=== PATIENT | male | born 1940 | race Caucasian/White ===

== ENCOUNTER 2017-11-02 12:48 | Outpatient (CLI) | payer MEDICARE, OTHER ==
--- NOTE | 2017-11-02 16:12 | CT ---
CT OF CHEST WITHOUT CONTRAST: Date: 11/02/17 COMPARISON: None. HISTORY: Smoker with a 62 year smoking history. Nicotine dependent. TECHNIQUE: Multiple contiguous axial images were obtained in a CT of the chest without contrast per low dose can [facility] screening protocol. Sagittal and coronal reformats were performed. FINDINGS: There is a peripheral area of ground-glass attenuation in the right upper lobe measuring approximatel y 3.1 cm in thickness. This is against the periphery and is associated with volume loss and may repre sent scarring. No other pulmonary nodules are seen. No pneumothorax or pleural effusions are seen. The heart is normal in size. Atherosclerotic calcifications are seen in the aorta and coronary arteri es. The visualized subdiaphragmatic structures are unremarkable. The chest wall soft tissues are unremark able. IMPRESSION: Lung-RADS Category 3 - probably benign findings. The ground-glass attenuation in the right upper lobe may represent scarring. A follow-up low dose cancer screening CT in 6 months is recommended to ensur e stability. POS: [facility]
== END 2017-11-02 12:49 | disposition home or self-care (01) ==
LOC: CT 12:48
DX: F17.210 Nicotine dependence, cigarettes, uncomplicated (principal)
CPT/HCPCS: G0297

== ENCOUNTER 2017-11-20 08:52 | Inpatient (IN) | payer MEDICARE, OTHER ==
[2017-11-20] MEDS ORDERED: Ondansetron HCl/PF 4 MG/2 ML Vial ONE ×2 (09:17→10:50)
[2017-11-20 09:31] LABS: #Basophils 0.2 thou/uL (0.0-0.2); #Lymphocytes 0.5 thou/uL (1.20-3.40); #Monocytes 0.4 thou/uL (0.11-0.59); #Neutrophils 12.7 thou/uL (1.40-6.50); %Basophils 1.5 % (0.0-1.0); %Eosinophils 0.1 % (0.0-10.0); %Lymphocytes 3.8 % (21.0-51.0); %Monocytes 2.8 % (0.0-10.0); %Neutrophils 91.7 % (42.0-75.0); Hemoglobin 17.5 g/dL (14.0-18.0); Mean Corpuscular HGB CONC 33.3 g/dL (32.0-36.0); Mean Corpuscular Hemoglobin 34.4 pg (27.0-31.0); Mean Platelet Volume 7.7 fL (7.4-10.4); Platelet Count 223 thou/uL (130-400); Red Blood Cell (RBC) Count 5.09 mill/uL (4.70-6.10); White Blood Cell (WBC) Count 13.8 thou/uL (4.8-10.8)
[2017-11-20 09:43] LABS: ALT (SGPT) 28 U/L (8-55); AST (SGOT) 24 U/L (5-34); Albumin 4.3 g/dL (3.4-4.8); Alkaline Phosphatase 58 U/L (40-150); Anion Gap 16 mmol/L (10-20); BUN (Urea Nitrogen) 11 mg/dL (8.4-25.7); Bilirubin, Total 0.7 mg/dL (0.2-1.2); Calc. Creatinine Clearance 0 mL/min (70-130); Calcium 9.9 mg/dL (7.8-10.44); Carbon Dioxide 27 mmol/L (23-31); Chloride 101 mmol/L (98-107); Estimated GFR-MDRD 62; Globulin 3.1 g/dL (2.4-3.5); Glucose 177 mg/dL (83-110); Potassium 4.4 mmol/L (3.5-5.1); Protein, Total 7.4 g/dL (5.8-8.1); Sodium 140 mmol/L (136-145)
[2017-11-20 09:48] LABS: CKMB 1.8 ng/mL (0-6.6); Troponin I 0.013 ng/mL (< 0.028)
--- NOTE | 2017-11-20 09:56 | RAD ---
CHEST ONE VIEW: HISTORY: Altered mental status. COMPARISON: None. FINDINGS: Atherosclerosis of the aorta. Normal cardiac silhouette. Pulmonary vessels and hilum are normal. C ostophrenic angles are clear. No consolidation or mass. No pneumothorax or osseous abnormalities. IMPRESSION: 1. No acute cardiopulmonary process. 2. Atherosclerosis. POS: [facility]
--- NOTE | 2017-11-20 10:05 | CT ---
EXAM: NONCONTRAST HEAD CT HISTORY: Altered mental status. Slurred speech and disorientation. COMPARISON: None. TECHNIQUE: Noncontrast head CT is performed from skull base to skull vertex. FINDINGS: No parenchymal hemorrhage. No extraaxial hematoma. No midline shift. Basilar cisterns are patent. Brain volume is age-appropriate. Cortical mir-white matter differentiation is preserved. Ventricl es and sulci are patent and symmetric. Confulent white matter hypodensity is due to chronic small vessel ischemic change. Malacic change in the right cerebellar hemisphere. Atherosclerosis of the cavernous carotid arteries and intracranial vertebral arteries. Calvarium is intact. Right maxillary sinus and scattered ethmoidal mucosal thickening. IMPRESSION: 1. No acute intracranial process. 2. Chronic small-vessel ischemic change in white matter. 3. Age-appropriate atrophy. 4. Malacic change in the right cerebellum. POS: [facility]
[2017-11-20] MEDS ORDERED: Aspirin 81 mg Enteric Coated Tablet ONE (10:27)
[2017-11-20] MEDS ORDERED: HYDROcodone/Acetaminophen 5/325 mg Tablet PO PRN (11:19)
[2017-11-20] MEDS ORDERED: Ondansetron HCl/PF 4 MG/2 ML Vial IVP PRN (11:19)
[2017-11-20] MEDS ORDERED: Pepto Bismol Chew TAB PO PRN (11:19)
[2017-11-20] MEDS ORDERED: Acetaminophen 325 MG TAB PO PRN (11:19)
[2017-11-20] MEDS ORDERED: Ondansetron ODT 4 MG TAB PO PRN (11:19)
[2017-11-20 12:44] LABS: Troponin I Less than 0.010 ng/mL (< 0.028)
[2017-11-20] MEDS ORDERED: hydrALAZINE 20 MG/ML VIAL SLOW IVP PRN (13:03)
[2017-11-20 13:41] LABS: Lactic Acid 3.8 mmol/L (0.5-2.2)
--- NOTE | 2017-11-20 14:36 | HP ---
DATE OF ADMISSION: 11/20/2017 PRIMARY CARE PHYSICIAN: Ke Freitas M.D. CHIEF COMPLAINT: Weakness. HISTORY OF PRESENT ILLNESS: This is a 77-year-old white male who is living with his . He is not ed to have a sudden onset of nausea and vomiting associated with diarrhea last night in the evening. This morning, he was noted to have some slurred speech and worsening weakness. This was noticed by his . This happened at around 6:30 this a.m. and patient arrived into the ER 3 hours after the f irst event. The patient had a CT of the head in the ER which was negative for any intracranial hemor rhage, but patient had persistent neurologic deficits. No TPA was given as it was beyond 3 hours win theodora. 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 This was more than more than 3 years ago when he had chemotherapy and radiation and used to see [facility]. The patient other puckett is in good health. Did not take any known medications. Denies having any chest pain, continues to have vomiting, but no diarrhea at this time. The patient has a history of aneurysm stent placed more than 2 or 3 years ago. Otherwise, no other k nown medical issues. PAST MEDICAL HISTORY: 1. History of lymphoma, underwent chemotherapy and radiation therapy more than 3 years ago. 2. History of hypertension. PAST SURGICAL HISTORY: History of aneurysmal stent placed more than 3 years ago. SOCIAL HISTORY: The patient is an ongoing smoker. No history of alcohol, no history of illicit drug use. FAMILY HISTORY: No significant family history of any coronary artery disease and family history has been reviewed and not relevant for the elderly age of the patient. REVIEW OF SYSTEMS: All 12 systems are reviewed with patient thoroughly and found to be negative at t his time. The following complete review of systems was negative, unless otherwise mentioned in the H PI or below: Constitutional: Weight loss or gain, sense of well-being, ability to conduct usual activities, exerc ise tolerance. Skin/Breast: Rash, itching, changes in hair growth or loss, nail changes, breast lumps, tenderness, swelling, nipple discharge. Eyes: Vision, double vision, tearing, blind spots, pain. ENT/Mouth: Headaches (location, time of onset, duration, precipitating factors), vertigo, lightheade dness, injury. Vision, double vision, tearing, blind spots, pain, nose bleeding, colds, obstruction, discharge, dental difficulties, gingival bleeding, dentures, neck stiffness, pain, tenderness, masses in thyroid or other areas Cardiovascular: Precordial pain, substernal distress, palpitations, syncope, dyspnea on exertion, or thopnea, nocturnal paroxysmal dyspnea, edema, cyanosis, hypertension, heart murmurs, varicosities, ph lebitis, claudication. Respiratory: Pain, shortness of breath, wheezing, stridor, cough, hemoptysis, fever or night sweats Gastrointestinal: Poor appetite, dysphagia, indigestion, abdominal pain, heartburn, eructation, naus ea, vomiting, hematemesis, jaundice, constipation, or diarrhea, abnormal stools (danna-colored, tarry, bloody, greasy, foul smelling), flatulence, hemorrhoids, recent changes in bowel habits. Genitourinary: Urgency, frequency, dysuria, nocturia, hematuria, polyuria, oliguria, unusual (or royal nge in) color of urine, stones, hesitancy, change in size of stream, dribbling, acute retention or in continence, libido, potency. Musculoskeletal: Pain, swelling, redness or heat of muscles or joints, limitation, of motion, muscul ar weakness, atrophy, cramps. Neurologic/Psychiatric: Convulsions, paralyses, tremor, incoordination, paraesthesias, difficulties with memory of speech, sensory or motor disturbances, or muscular coordination (ataxia, tremor), emot ional problems, anxiety, depression, previous psychiatric care, unusual perceptions, hallucinations. Allergy/Immunologic: Skin rash, anemia, bleeding tendency, polydipsia, polyuria, intolerance to heat or cold. HOME MEDICATIONS: Reviewed. Currently, the patient is not on any home medications. ALLERGIES: PENICILLIN allergy. PHYSICAL EXAMINATION: VITAL SIGNS: Blood pressure is 201/110, respiration is 18, pulse is 110, saturations 98% on room air . GENERAL: The patient is moderately built and moderately nourished, he is seen sitting in the bed, re tching with nausea; however, he is not in any distress with pain. HEENT: Atraumatic, normocephalic, PERRLA, extraocular movements are intact. Oral mucosa is dry. CARDIOVASCULAR SYSTEM: S1, S2 normal. No murmurs, rubs or gallops. LUNGS: Bilateral air entry was equal. No wheezing, no crackles. ABDOMEN: Soft, nontender, no guarding, no rebound tenderness. Bowel sounds normal. MUSCULOSKELETAL: No calf tenderness. No pedal edema. No joint tenderness, no joint swelling. SKIN: No cyanosis, no erythema, no rash, no pallor. NEUROLOGIC: Cranial nerve examination II-XII was done. Patient has signs of twelfth nerve deficit w ith slurred speech, but no evidence of any facial nerve deficits was noted. The patient did not have any sensory or motor abnormalities. Gait has not been assessed at this time. PSYCHIATRIC: No signs of suicidal ideation. No signs of rafael. No signs of agitation noted. LYMPHATICS: No other lymphadenopathy was noted. Patient had a history of enlarged lymph nodes in th e left underarm. LABORATORY DATA AND IMAGING DATA: Sodium 140, potassium 4.4, chloride 101, bicarbonate is 27, BUN is 11, creatinine 1.14, lactic acid 4.6. WBC 13.8, hemoglobin is 17.8, hematocrit is 52.6, neutrophils 91.7% with mild left shift is noted. Chest x-ray was done and was unremarkable. CT of the brain was done showing an evidence of encephalo malacia of the right cerebellum. Otherwise, no acute intracranial hemorrhage and showed some chronic small vessel changes. ASSESSMENT AND PLAN: 1. Acute intractable nausea and vomiting. 2. Acute encephalomalacia changes on the right cerebellum. 3. Moderate to severe dehydration. 4. Uncontrolled hypertension. 5. Leukocytosis. 6. Acute diarrhea. PLAN: 1. Plan is to admit the patient for inpatient at this time as the patient has multiple things going on. He has encephalomalacia patching on the right cerebellar area, which is associated with some slu rred speech and imbalance which the patient's family has noted at home. With history of lymphoma in the past, plan is to do MRI of the brain with contrast and look for any evidence of metastatic lesion s. We will consult Oncology based on the MRI results. 2. The patient has possible evidence of stroke with persistent neurologic deficits noted. At this t isaura, we will do a stroke evaluation. We will wait for MRI results and will consult Neurology. The p atient has been given aspirin, but TPA was not given because patient was out of the 3-hour window. W e will continue the statin. We will check for the lipid profiles. We will do a 2-D echo to look for any evidence of thromboembolism contributing to present stroke. 3. Patient has evidence of moderate to severe dehydration secondary to nausea and vomiting. The pat ient will be continued on normal saline at 100 mL hour. 4. The patient has acute diarrhea. We will check for any evidence of C. diff infection and send the stool for cultures and stool WBCs. 5. Ddeep venous thrombosis prophylaxis, he is on Lovenox. I spent 70 minutes on this patient.
[2017-11-20] MEDS: Sodium Chloride 0.9% 1,000 ML IV SCH (16:00)
[2017-11-20] MEDS ORDERED: Gadobenate Dimeglumine 529 MG/1 ML (20ML VIAL) ONE (16:57)
--- NOTE | 2017-11-20 17:35 | ULT ---
BILATERAL CAROTID DOPPLER 11/20/17 HISTORY: Dizziness. COMPARISON: None. FINDINGS: Real time mir scale and color evaluation as well as spectral analysis of the extracranial carotid an d vertebral arteries performed. Antegrade flow to both vertebral arteries. No elevated peak systolic velocities of the internal carotid arteries. Right ICA/CCA ratio is 0.56 and left ICA/CCA ratio is 0. 89. IMPRESSION: No hemodynamically significant stenosis. POS: [facility]
[2017-11-20 18:46] LABS: Cardiac Risk 3.8 (Less than 4.5)
--- NOTE | 2017-11-20 19:20 | MRI ---
EXAM: BRAIN MRI WITH AND WITHOUT CONTRAST 11/20/17 HISTORY: Dizziness. Headache and weakness. COMPARISON: None. TECHNIQUE: Brain MRI is performed with and without intravenous gadolinium administration. Multisequential, multi planar imaging is performed. FINDINGS: No hemorrhage on the axial gradient echo sequence. No parenchymal mass, mass effect or midline shift. Brain volume is age appropriate. Cortical mir-whi te matter differentiation is preserved. Ventricles and sulci are patent and symmetric. Central arterial flow voids are maintained. Absent restricted diffusion in the cerebrum. However, the re are multifocal areas of restricted diffusion involving the right cerebellar hemisphere. There is a ssociated T2 and FLAIR signal hyperintensity. Additional T2 and FLAIR white matter hyperintensity is noted in the supratentorial brain, compatible with chronic small vessel ischemic changes of the white matter. No pathologic enhancement of the brain parenchyma. The calvarium has a normal T1 marrow signal intens ity. Midline brain parenchymal structures are unremarkable. Mild mucosal thickening of the ethmoid air cells. There is an air fluid level in the right maxillary sinus. IMPRESSION: 1. Acute right cerebellar infarct. 2. Chronic small vessel ischemic change white matter. POS: [facility]
--- NOTE | 2017-11-20 19:52 | CON ---
DATE OF CONSULTATION: 11/20/2017 CONSULTING PHYSICIAN: Hospital Service IMPRESSION: Right cerebellar stroke with imbalance and transient nausea and vomiting. PLAN: 1. Aspirin. 2. Statin. 3. Review carotid ultrasound and echocardiogram. 4. Determine whether rehab versus outpatient therapy is necessary. Mr. Bro is a fairly healthy 77-year-old male with a past history of lymphoma. He is not taking any type of medication, [place] in the [place]. Developed acute nausea and vo miting, came into the emergency room for evaluation. His initial CT scan was done in the ER showed s ome chronic ischemic changes in the right cerebellum. A subsequent MRI of the brain shows evidence o f some acute ischemia in the right cerebellum. He was not complaining of any headache, nausea or vom iting at this point. He has not been able to walk since admission. He has been noted to be fairly h ypertensive with diastolics over 100. His laboratory studies were unremarkable other than a blood gl ucose of 177. He was on no medication. PAST MEDICAL HISTORY: As lymphoma. ALLERGIES: PENICILLIN. SOCIAL HISTORY: Positive for tobacco use. No alcohol. FAMILY HISTORY: Noncontributory. REVIEW OF SYSTEMS: Otherwise, unremarkable. PHYSICAL EXAMINATION: VITAL SIGNS: Blood pressure 179/103, pulse 83, respirations 16, temperature 98.8. HEENT: Pupils equal and reactive. Conjunctivae clear. Oropharynx clear. Cranium normocephalic and atraumatic. NECK: No lymphadenopathy. EXTREMITIES: No cyanosis. NEUROLOGIC: Alert and cooperative. His speech is fluent and clear. Cranial nerves were intact with out any obvious nystagmus. Motor exam showed good strength bilaterally. Cerebellar testing showed s ome mild dysmetria on the right. He was able to bring himself to a standing position, but was quite unsteady and wavered from side to side. Sensation was intact to light touch bilaterally. Laboratory studies were reviewed. SUMMARY: This is a 77-year-old man with apparent hypertension, questionable diabetes who presents wi th acute ischemic changes in the right cerebellum superimposed on some chronic damage. I agree with current medical management and workup.
[2017-11-20] MEDS: Atorvastatin Calcium 40 MG TAB PO SCH (21:48)
[2017-11-20] MEDS: Famotidine/PF 20 mg/2ml Vial SLOW IVP SCH (21:49)
[2017-11-20 22:30] LABS: Lactic Acid 2.1 mmol/L (0.5-2.2)
[2017-11-21] MEDS: Sodium Chloride 0.9% 1,000 ML IV SCH ×2 (05:28→16:54)
[2017-11-21 05:29] VITALS: BMI 29.0
[2017-11-21 05:46] LABS: #Eosinphils 0.1 thou/uL (0.0-0.7); #Lymphocytes 2.2 thou/uL (1.20-3.40); #Monocytes 1.5 thou/uL (0.11-0.59); #Neutrophils 13.5 thou/uL (1.40-6.50); %Basophils 0.2 % (0.0-1.0); %Eosinophils 0.3 % (0.0-10.0); %Lymphocytes 12.6 % (21.0-51.0); %Monocytes 8.8 % (0.0-10.0); %Neutrophils 78.1 % (42.0-75.0); Hemoglobin 15.6 g/dL (14.0-18.0); Mean Corpuscular HGB CONC 33.2 g/dL (32.0-36.0); Mean Corpuscular Hemoglobin 34.4 pg (27.0-31.0); Mean Platelet Volume 7.9 fL (7.4-10.4); Platelet Count 201 thou/uL (130-400); Red Blood Cell (RBC) Count 4.53 mill/uL (4.70-6.10); White Blood Cell (WBC) Count 17.3 thou/uL (4.8-10.8)
[2017-11-21 05:56] LABS: Anion Gap 12 mmol/L (10-20); BUN (Urea Nitrogen) 11 mg/dL (8.4-25.7); Calc. Creatinine Clearance 77 mL/min (70-130); Calcium 8.7 mg/dL (7.8-10.44); Carbon Dioxide 26 mmol/L (23-31); Chloride 103 mmol/L (98-107); Estimated GFR-MDRD 78; Glucose 105 mg/dL (83-110); Potassium 3.8 mmol/L (3.5-5.1); Sodium 137 mmol/L (136-145)
[2017-11-21] MEDS: Aspirin 81 mg Enteric Coated Tablet PO SCH (10:21)
[2017-11-21] MEDS: Famotidine/PF 20 mg/2ml Vial SLOW IVP SCH ×2 (10:21→21:10)
[2017-11-21] MEDS: Enoxaparin Sodium 40 MG/0.4 ML SYRINGE SC SCH (10:21)
[2017-11-21 11:27] LABS: Bilirubin Negative (Negative); Blood, Urine Negative (Negative); Clarity CLEAR (Clear); Glucose, Urine (Dipstick) Negative (Negative); Leukocyte Negative (Negative); Nitrite Negative (Negative); Protein, Urine (Dipstick) 30 mg/dL (Neg-Trace); Specific Gravity, Urine 1.017 (1.002-1.036); Urobilinogen 0.2 mg/dL (0.2-1.0); pH, Urine 7.5 (5.0-9.0)
[2017-11-21 11:31] LABS: Bacteria/HPF None Seen HPF (None Seen); Hyaline Casts/LPF 0-3 HYALINE CAST LPF (0-3 Hyaline); Squamous Epithelial None Seen HPF (0-3); WBC/HPF 0-3 HPF (0-3)
--- NOTE | 2017-11-21 11:33 | RAD ---
PA AND LATERAL VIEWS CHEST: HISTORY: Shortness of breath. Leukocytosis. Concern for aspiration pneumonia. COMPARISON: Exam from the previous day. FINDINGS: The heart size is normal. The aorta is tortuous. No confluent areas of consolidation, pneumothorace s, or pleural effusions are seen. No acute osseous abnormalities are noted. IMPRESSION: No acute process. POS: [facility]
--- NOTE | 2017-11-21 14:57 | PDOC.PN ---
- Subjective Encounter Start Date: 11/21/17 Encounter Start Time: 10:30 Patient is seen today, alert and oriented. No Other concernes noted. Called pts on phone, Explained about the New Stroke on MRI. Pt will be going to Rehab. - Objective Resuscitation Status: Resuscitation Status FULL:Full Resuscitation MAR Reviewed: Yes Vital Signs & Weight: Vital Signs (12 hours) Temp Pulse Pulse Pulse Resp BP BP 11/21/17 11:13 98 F 61 18 11/21/17 09:37 65 56 L 152/100 H 160/93 H 11/21/17 09:35 65 56 L 152/100 H 160/93 H 11/21/17 09:15 98.3 F 65 18 11/21/17 07:13 98.3 F 65 18 11/21/17 03:57 98.6 F 66 18 BP Pulse Ox 11/21/17 11:13 168/99 H 98 11/21/17 09:37 11/21/17 09:35 11/21/17 09:15 96 11/21/17 07:13 133/89 96 11/21/17 03:57 139/79 96 Weight Weight 179 lb 11.2 oz I&O: 11/20/17 11/21/17 11/22/17 06:59 06:59 06:59 Intake Total 1455 Output Total 1085 Balance 370 Result Diagrams: 11/21/17 05:04 11/21/17 05:04 Phys Exam - Physical Examination HEENT: PERRLA, moist MMs Neck: no nodes, no JVD Respiratory: no wheezing, no rales, clear to auscultation bilateral Cardiovascular: RRR, no significant murmur Gastrointestinal: soft, non-tender Musculoskeletal: no edema, pulses present Neurological: normal sensation, moves all 4 limbs (Has persistant Slurred Speech and Imbalance on walking.) Dx/Plan (1) Acute cerebrovascular accident (CVA) of cerebellum Code(s): I63.9 - CEREBRAL INFARCTION, UNSPECIFIED Status: Acute Plan: Patient is started on Aspirin/ Statin, Pt had normal US cROTIDS, nO SOURCE OF EMBOLI IS identified. Echo is pending at this time. Pt will go for Rehab inpatient due to his persistant weakness. (2) Leucocytosis Code(s): D72.829 - ELEVATED WHITE BLOOD CELL COUNT, UNSPECIFIED Status: Acute Qualifiers: Leukocytosis type: bandemia Qualified Code(s): D72.825 - Bandemia Plan: Patient has left Shift, No source of infection is noted, Will start Emperic Levofloxacin 500mg IV daily, will do Chest xray repeat for possible Aspiration, Will check UA for UTI. (3) Hypertension, uncontrolled Code(s): I10 - ESSENTIAL (PRIMARY) HYPERTENSION Status: Acute Plan: Pt is Restarted on his home MEds, GOal BP <130/80. (4) Hyperlipidemia Code(s): E78.5 - HYPERLIPIDEMIA, UNSPECIFIED Status: Acute Qualifiers: Hyperlipidemia type: other hyperlipidemia Qualified Code(s): E78.4 - Other hyperlipidemia Plan: COntinue pt on Statin will check lipid levels Goal LDL <100 - Plan plan discussed w/ family, PT/OT, social contact worker, speech therapy, DVT proph w/ lovenox * . - Discharge Day Encounter end time: 11:00 Review of Systems - Review of Systems Constitutional: weakness Eyes: negative: Pain, Vision Change, Conjunctivae Inflammation, Eyelid Inflammation, Redness, Other ENT: negative: Ear Pain, Ear Discharge, Nose Pain, Nose Discharge, Nose Congestion, Mouth Pain, Mouth Swelling, Throat Pain, Throat Swelling, Other Respiratory: negative: Cough, Dry, Shortness of Breath, Hemoptysis, SOB with Excertion, Pleuritic Pain, Sputum, Wheezing Cardiovascular: negative: chest pain, palpitations, orthopnea, paroxysmal nocturnal dyspnea, edema, light headedness, other Gastrointestinal: negative: Nausea, Vomiting, Abdominal Pain, Diarrhea, Constipation, Melena, Hematochezia, Other Genitourinary: negative: Dysuria, Frequency, Incontinence, Hematuria, Retention , Other Musculoskeletal: negative: Neck Pain, Shoulder Pain, Arm Pain, Back Pain, Hand Pain, Leg Pain, Foot Pain, Other Neurological: Weakness, Change in Speech - Medications/Allergies Allergies/Adverse Reactions: Allergies Allergy/AdvReac Type Severity Reaction Status Date / Time penicillin G Allergy Verified 11/21/17 01:59 Medications: Current Medications Acetaminophen (Tylenol) 650 mg PO Q4H PRN PRN Reason: Headache/Fever or Pain Last Admin: 11/21/17 02:09 Dose: 650 mg Hydrocodone Bitart/Acetaminophen (Racine 5/325) 1 tab PO Q4H PRN PRN Reason: Moderate Pain (4-6) Aspirin (Ecotrin) 81 mg PO DAILY [facility] Last Admin: 11/21/17 10:21 Dose: 81 mg Atorvastatin Calcium (Lipitor) 40 mg PO HS [facility] Last Admin: 11/20/17 21:48 Dose: 40 mg Bismuth Subsalicylate (Pepto Bismol) 2 tab PO Q1H PRN PRN Reason: Diarrhea/Loose Stools Enoxaparin Sodium (Lovenox) 40 mg SC 0900 [facility] Last Admin: 11/21/17 10:21 Dose: 40 mg Famotidine (Pepcid) 20 mg SLOW IVP Q12HR [facility] Last Admin: 11/21/17 10:21 Dose: 20 mg Hydralazine HCl (Apresoline) 10 mg SLOW IVP Q4H PRN PRN Reason: Sysolic > 180 Sodium Chloride (Normal Saline 0.9%) 1,000 mls @ 100 mls/hr IV .Q10H [facility] Last Admin: 11/21/17 05:28 Dose: 1,000 mls Levofloxacin 500 mg/ Device 100 mls @ 100 mls/hr IVPB 1100 [facility] Last Admin: 11/21/17 12:03 Dose: 100 mls Ondansetron HCl (Zofran Odt) 4 mg PO Q6H PRN PRN Reason: Nausea/Vomiting Ondansetron HCl (Zofran) 4 mg IVP Q6H PRN PRN Reason: Nausea/Vomiting Last Admin: 11/20/17 13:46 Dose: 4 mg Sodium Chloride (Flush - Normal Saline) 10 ml IVF Q12HR [facility] Last Admin: 11/21/17 10:22 Dose: Not Given Sodium Chloride (Flush - Normal Saline) 10 ml IVF PRN PRN PRN Reason: Saline Flush
[2017-11-21] MEDS: Atorvastatin Calcium 40 MG TAB PO SCH (21:10)
[2017-11-22] MEDS: Sodium Chloride 0.9% 1,000 ML IV SCH ×2 (03:01→14:40)
[2017-11-22 05:37] LABS: #Basophils 0.1 thou/uL (0.0-0.2); #Eosinphils 0.1 thou/uL (0.0-0.7); #Monocytes 1.2 thou/uL (0.11-0.59); #Neutrophils 8.1 thou/uL (1.40-6.50); %Basophils 0.6 % (0.0-1.0); %Lymphocytes 17.3 % (21.0-51.0); %Monocytes 10.1 % (0.0-10.0); %Neutrophils 71.1 % (42.0-75.0); Hemoglobin 15.4 g/dL (14.0-18.0); Mean Corpuscular Hemoglobin 32.8 pg (27.0-31.0); Mean Platelet Volume 7.8 fL (7.4-10.4); Platelet Count 192 thou/uL (130-400); RBC Distribution Width 11.7 % (11.5-14.5); Red Blood Cell (RBC) Count 4.69 mill/uL (4.70-6.10); White Blood Cell (WBC) Count 11.4 thou/uL (4.8-10.8)
[2017-11-22 05:47] LABS: Anion Gap 11 mmol/L (10-20); BUN (Urea Nitrogen) 10 mg/dL (8.4-25.7); Calc. Creatinine Clearance 92 mL/min (70-130); Calcium 8.5 mg/dL (7.8-10.44); Carbon Dioxide 27 mmol/L (23-31); Chloride 104 mmol/L (98-107); Estimated GFR-MDRD 90; Glucose 89 mg/dL (83-110); Potassium 3.5 mmol/L (3.5-5.1); Sodium 138 mmol/L (136-145)
[2017-11-22] MEDS: Enoxaparin Sodium 40 MG/0.4 ML SYRINGE SC SCH (08:36)
[2017-11-22] MEDS: Famotidine/PF 20 mg/2ml Vial SLOW IVP SCH (08:36)
[2017-11-22] MEDS: Aspirin 81 mg Enteric Coated Tablet PO SCH (08:36)
--- NOTE | 2017-11-22 15:42 | PDOC.PN ---
- Subjective Encounter Start Date: 11/22/17 Encounter Start Time: 14:00 Patient is seen today, alert and oriented. No other Concerns noted. Discussed with his on phone, they are in the process of moving to [place], Wants to take him to [place] and do Rehab over there, will discuss with Case manageemnt and pt/.OT. - Objective Resuscitation Status: Resuscitation Status FULL:Full Resuscitation MAR Reviewed: Yes Vital Signs & Weight: Vital Signs (12 hours) Temp Pulse Resp BP Pulse Ox 11/22/17 11:51 99.1 F 60 20 160/105 H 98 11/22/17 08:30 98.7 F 61 20 97 11/22/17 08:00 98.7 F 61 20 151/98 H 97 11/22/17 04:15 98.7 F 67 20 149/87 H 96 Weight Admit Weight 178 lb 9.191 oz Weight 188 lb 9.6 oz I&O: 11/21/17 11/22/17 11/23/17 06:59 06:59 06:59 Intake Total 1455 2964 Output Total 1085 1700 700 Balance 370 1264 -700 Result Diagrams: 11/22/17 05:05 11/22/17 05:05 Radiology Reviewed by me: Yes Phys Exam - Physical Examination HEENT: PERRLA, moist MMs Neck: no nodes, no JVD Respiratory: no wheezing, no rales Cardiovascular: RRR, no significant murmur Gastrointestinal: soft, non-tender Musculoskeletal: no edema, pulses present Dx/Plan (1) Acute cerebrovascular accident (CVA) of cerebellum Code(s): I63.9 - CEREBRAL INFARCTION, UNSPECIFIED Status: Acute (2) Leucocytosis Code(s): D72.829 - ELEVATED WHITE BLOOD CELL COUNT, UNSPECIFIED Status: Acute Qualifiers: Leukocytosis type: bandemia Qualified Code(s): D72.825 - Bandemia (3) Hypertension, uncontrolled Code(s): I10 - ESSENTIAL (PRIMARY) HYPERTENSION Status: Acute (4) Hyperlipidemia Code(s): E78.5 - HYPERLIPIDEMIA, UNSPECIFIED Status: Acute Qualifiers: Hyperlipidemia type: other hyperlipidemia Qualified Code(s): E78.4 - Other hyperlipidemia - Plan cont current plan of care, plan discussed w/ family, PT/OT, social worker clinical, speech therapy, DVT proph w/lovenox * . Plan: Will contoinue on Statin/ Aspirin for CVA Leucocytosis Improving, No evidence of infection, Chest xray normal. Will d/ c IV antibitoics. HTN well controlled. Family wants to take him to [place] and get his Rehab over there,.Will get PT/OT evalaute for safe discharge and outpaitent Rehab. DVT prophylaxis: Lovenox. - Discharge Day Encounter end time: 14:30 Review of Systems - Review of Systems Constitutional: weakness Eyes: negative: Pain, Vision Change, Conjunctivae Inflammation, Eyelid Inflammation, Redness, Other ENT: negative: Ear Pain, Ear Discharge, Nose Pain, Nose Discharge, Nose Congestion, Mouth Pain, Mouth Swelling, Throat Pain, Throat Swelling, Other Respiratory: negative: Cough, Dry, Shortness of Breath, Hemoptysis, SOB with Excertion, Pleuritic Pain, Sputum, Wheezing Cardiovascular: negative: chest pain, palpitations, orthopnea, paroxysmal nocturnal dyspnea, edema, light headedness, other Gastrointestinal: negative: Nausea, Vomiting, Abdominal Pain, Diarrhea, Constipation, Melena, Hematochezia, Other Genitourinary: negative: Dysuria, Frequency, Incontinence, Hematuria, Retention , Other Musculoskeletal: negative: Neck Pain, Shoulder Pain, Arm Pain, Back Pain, Hand Pain, Leg Pain, Foot Pain, Other Skin: negative: Rash, Lesions, Tae, Bruising, Other Neurological: Weakness - Medications/Allergies Allergies/Adverse Reactions: Allergies Allergy/AdvReac Type Severity Reaction Status Date / Time penicillin G Allergy Verified 11/21/17 01:59 Medications: Current Medications Acetaminophen (Tylenol) 650 mg PO Q4H PRN PRN Reason: Headache/Fever or Pain Last Admin: 11/21/17 02:09 Dose: 650 mg Hydrocodone Bitart/Acetaminophen ([place] 5/325) 1 tab PO Q4H PRN PRN Reason: Moderate Pain (4-6) Aspirin (Ecotrin) 81 mg PO DAILY [facility] Last Admin: 11/22/17 08:36 Dose: 81 mg Atorvastatin Calcium (Lipitor) 40 mg PO HS [facility] Last Admin: 11/21/17 21:10 Dose: 40 mg Bismuth Subsalicylate (Pepto Bismol) 2 tab PO Q1H PRN PRN Reason: Diarrhea/Loose Stools Enoxaparin Sodium (Lovenox) 40 mg SC 0900 [facility] Last Admin: 11/22/17 08:36 Dose: 40 mg Famotidine (Pepcid) 20 mg SLOW IVP Q12HR [facility] Last Admin: 11/22/17 08:36 Dose: 20 mg Hydralazine HCl (Apresoline) 10 mg SLOW IVP Q4H PRN PRN Reason: Sysolic > 180 Sodium Chloride (Normal Saline 0.9%) 1,000 mls @ 100 mls/hr IV .Q10H [facility] Last Admin: 11/22/17 14:40 Dose: 1,000 mls Levofloxacin 500 mg/ Device 100 mls @ 100 mls/hr IVPB 1100 [facility] Last Admin: 11/22/17 11:16 Dose: 100 mls Ondansetron HCl (Zofran Odt) 4 mg PO Q6H PRN PRN Reason: Nausea/Vomiting Ondansetron HCl (Zofran) 4 mg IVP Q6H PRN PRN Reason: Nausea/Vomiting Last Admin: 11/20/17 13:46 Dose: 4 mg Sodium Chloride (Flush - Normal Saline) 10 ml IVF Q12HR [facility] Last Admin: 11/22/17 08:37 Dose: Not Given Sodium Chloride (Flush - Normal Saline) 10 ml IVF PRN PRN PRN Reason: Saline Flush
[2017-11-22] MEDS: Famotidine 20 MG TAB PO SCH (21:36)
[2017-11-22] MEDS: Atorvastatin Calcium 40 MG TAB PO SCH (21:36)
[2017-11-23] MEDS: Enoxaparin Sodium 40 MG/0.4 ML SYRINGE SC SCH (08:45)
[2017-11-23] MEDS: Famotidine 20 MG TAB PO SCH ×2 (08:45→21:32)
[2017-11-23] MEDS: Aspirin 81 mg Enteric Coated Tablet PO SCH (08:45)
[2017-11-23] MEDS ORDERED: Lisinopril 10 MG TAB PO SCH (09:00)
[2017-11-23] MEDS: Hydrochlorothiazide 25 MG TAB PO SCH (09:33)
[2017-11-23] MEDS: Valsartan 80 MG TAB PO SCH (09:33)
--- NOTE | 2017-11-23 11:04 | PDOC.PN ---
- Subjective Encounter Start Date: 11/23/17 Encounter Start Time: 09:00 Patient is seen today, Alert and oriented, Discussed with who wants to take pt to [place] as they are moving there, Explained tomorrow CM will work on placement to [place]. Pt will need Inpatient Rehab per PT/OT. - Objective Resuscitation Status: Resuscitation Status FULL:Full Resuscitation MAR Reviewed: Yes Vital Signs & Weight: Vital Signs (12 hours) Temp Pulse Resp BP Pulse Ox 11/23/17 08:00 98.0 F 57 L 20 161/97 H 96 11/23/17 07:20 98.3 F 54 L 14 93 L 11/23/17 02:36 98.3 F 54 L 14 154/94 H 96 11/23/17 00:02 98.7 F 58 L 16 169/89 H 93 L Weight Admit Weight 178 lb 9.191 oz Weight 188 lb 9.6 oz I&O: 11/22/17 11/23/17 11/24/17 06:59 06:59 06:59 Intake Total 2964 1810 Output Total 1700 3735 Balance 1264 -1925 Result Diagrams: 11/22/17 05:05 11/22/17 05:05 Radiology Reviewed by me: Yes Phys Exam - Physical Examination HEENT: PERRLA, moist MMs Neck: no nodes, no JVD Respiratory: no wheezing, no rales Cardiovascular: RRR, no significant murmur Gastrointestinal: soft, non-tender Musculoskeletal: no edema, pulses present Neurological: non-focal, normal sensation Lymphatic: no nodes Psychiatric: normal affect, A&O x 3 Dx/Plan (1) Acute cerebrovascular accident (CVA) of cerebellum Code(s): I63.9 - CEREBRAL INFARCTION, UNSPECIFIED Status: Acute (2) Leucocytosis Code(s): D72.829 - ELEVATED WHITE BLOOD CELL COUNT, UNSPECIFIED Status: Acute Qualifiers: Leukocytosis type: bandemia Qualified Code(s): D72.825 - Bandemia (3) Hypertension, uncontrolled Code(s): I10 - ESSENTIAL (PRIMARY) HYPERTENSION Status: Acute (4) Hyperlipidemia Code(s): E78.5 - HYPERLIPIDEMIA, UNSPECIFIED Status: Acute Qualifiers: Hyperlipidemia type: other hyperlipidemia Qualified Code(s): E78.4 - Other hyperlipidemia - Plan cont current plan of care, plan discussed w/ family, PT/OT, pediatric social worker, speech therapy, DVT proph w/lovenox * . Plan: Will contoinue on Statin/ Aspirin for CVA Leucocytosis Improving, No evidence of infection, Chest xray normal. d/c PO antibitoics. HTN well controlled. Family wants to take him to [place] and get his Rehab over there,.Will get PT/OT evalaute for safe discharge and outpaitent Rehab.CM to look for placmenet and Insurance approval so patient will get into Inpatient Rehab at [place]. pt is high risk for falls. DVT prophylaxis: Lovenox. - Discharge Day Encounter end time: 09:30 Review of Systems - Review of Systems Constitutional: weakness, malaise. negative: fever, chills, sweats, other Eyes: negative: Pain, Vision Change, Conjunctivae Inflammation, Eyelid Inflammation, Redness, Other ENT: negative: Ear Pain, Ear Discharge, Nose Pain, Nose Discharge, Nose Congestion, Mouth Pain, Mouth Swelling, Throat Pain, Throat Swelling, Other Respiratory: negative: Cough, Dry, Shortness of Breath, Hemoptysis, SOB with Excertion, Pleuritic Pain, Sputum, Wheezing Cardiovascular: negative: chest pain, palpitations, orthopnea, paroxysmal nocturnal dyspnea, edema, light headedness, other Gastrointestinal: negative: Nausea, Vomiting, Abdominal Pain, Diarrhea, Constipation, Melena, Hematochezia, Other Genitourinary: negative: Dysuria, Frequency, Incontinence, Hematuria, Retention , Other Musculoskeletal: negative: Neck Pain, Shoulder Pain, Arm Pain, Back Pain, Hand Pain, Leg Pain, Foot Pain, Other Skin: negative: Rash, Lesions, Tae, Bruising, Other Neurological: Other (Persistant Deficits of Imbalance and Incordination) - Medications/Allergies Allergies/Adverse Reactions: Allergies Allergy/AdvReac Type Severity Reaction Status Date / Time penicillin G Allergy Verified 11/21/17 01:59 Medications: Current Medications Acetaminophen (Tylenol) 650 mg PO Q4H PRN PRN Reason: Headache/Fever or Pain Last Admin: 11/21/17 02:09 Dose: 650 mg Hydrocodone Bitart/Acetaminophen ([place] 5/325) 1 tab PO Q4H PRN PRN Reason: Moderate Pain (4-6) Aspirin (Ecotrin) 81 mg PO DAILY [facility] Last Admin: 11/23/17 08:45 Dose: 81 mg Atorvastatin Calcium (Lipitor) 40 mg PO HS [facility] Last Admin: 11/22/17 21:36 Dose: 40 mg Bismuth Subsalicylate (Pepto Bismol) 2 tab PO Q1H PRN PRN Reason: Diarrhea/Loose Stools Enoxaparin Sodium (Lovenox) 40 mg SC 0900 [facility] Last Admin: 11/23/17 08:45 Dose: 40 mg Famotidine (Pepcid) 20 mg PO BID [facility] Last Admin: 11/23/17 08:45 Dose: 20 mg Hydralazine HCl (Apresoline) 10 mg SLOW IVP Q4H PRN PRN Reason: Sysolic > 180 Hydrochlorothiazide (Hydrochlorothiazide) 12.5 mg PO DAILY [facility] Last Admin: 11/23/17 09:33 Dose: 12.5 mg Ondansetron HCl (Zofran Odt) 4 mg PO Q6H PRN PRN Reason: Nausea/Vomiting Ondansetron HCl (Zofran) 4 mg IVP Q6H PRN PRN Reason: Nausea/Vomiting Last Admin: 11/20/17 13:46 Dose: 4 mg Sodium Chloride (Flush - Normal Saline) 10 ml IVF Q12HR [facility] Last Admin: 11/23/17 08:44 Dose: Not Given Sodium Chloride (Flush - Normal Saline) 10 ml IVF PRN PRN PRN Reason: Saline Flush Valsartan (Diovan) 80 mg PO DAILY [facility] Last Admin: 11/23/17 09:33 Dose: 80 mg
[2017-11-23] MEDS: Atorvastatin Calcium 40 MG TAB PO SCH (21:33)
[2017-11-24] MEDS: Hydrochlorothiazide 25 MG TAB PO SCH (09:59)
[2017-11-24] MEDS: Famotidine 20 MG TAB PO SCH (09:59)
[2017-11-24] MEDS: Aspirin 81 mg Enteric Coated Tablet PO SCH (10:00)
[2017-11-24] MEDS: Enoxaparin Sodium 40 MG/0.4 ML SYRINGE SC SCH (10:02)
[2017-11-24] MEDS: Valsartan 80 MG TAB PO SCH (10:02)
[2017-11-24 11:32] VITALS: BP 99/81; TEMP 98.7
--- NOTE | 2017-11-25 13:50 | DIS ---
DATE OF ADMISSION: 11/20/2017 DATE OF DISCHARGE: 11/24/2017 ADMITTING DIAGNOSIS: Acute intractable nausea and vomiting. DISCHARGE DIAGNOSIS: Acute right cerebellar infarct ischemic. SECONDARY DIAGNOSES: 1. Acute encephalopathy. 2. Moderate to severe dehydration. 2. Uncontrolled hypertension. 3. Acute diarrhea. PROCEDURES DONE DURING THIS ADMISSION: MRI of the brain confirming the right cerebellar infarction. CT of the brain did not show any evidence of intracranial hemorrhage. CONSULTANTS INVOLVED IN THE CARE: Dr. Abdon Hazel, Neurology. A 2D echo was done, which showed good ejection fraction 65% with no evidence of any thromboembolism. HISTORY OF PRESENT ILLNESS AND HOSPITAL COURSE: In brief, this is a 77-year-old white male, who came in with his complaining of sudden onset of nausea and vomiting associated with diarrhea, which started with slurred speech and also with imbalance and his gait. The patient was brought and had a CT of the head in the ER, which did not show any evidence of intracranial hemorrhage, but patient had persistent neurologic deficits with persistent slurred speech and disorientation and inability to wa lk. His MRI was ordered with a suspicion and which did show an evidence of a cerebellar stroke. The patient had arrived to the ER more than 3 hours after the initial incident of slurred speech. No TP A was offered in the ER. Patient was started on aspirin and atorvastatin. A 2D echo was ordered, wh ich did not show any evidence of thromboembolic phenomenon. The patient was closely monitored and fontana d a PT and OT evaluation and they recommended the patient to be on walker and suggested inpatient [facility] initially. The patient stayed in the hospital because of the holidays for 2-3 days and his gait h as improved and they actually suggested him that he could go with supervision for outpatient rehabili tation if somebody is able to assist him to take him to the rehabilitation. I discussed with the pat holly and family and patient agreed to go to [place] instead where he has the family members who can take care of him. The patient was discharged home in stable condition to be followed up with outpati ent rehab for at least 4 weeks for physical therapy and speech therapy. The patient is discharged home in stable condition. PHYSICAL EXAMINATION: VITAL SIGNS: Blood pressures are 132/77, heart rate is 66, respiratory rate 20, and saturation 96% o n room air. GENERAL: The patient is moderately built and moderately nourished. CARDIOVASCULAR: S1 and S2 normal. No murmurs, rubs, or gallops. LUNGS: Bilateral air entry was equal. No wheezing, no crackles. ABDOMEN: Soft, nontender, no guarding, no rebound tenderness. Bowel sounds normal. MUSCULOSKELETAL: No calf tenderness or pedal edema. No joint tenderness, no joint swelling. SKIN: No cyanosis, no erythema, no rash, no pallor. DISCHARGE MEDICATIONS: 1. Aspirin 81 mg daily. 2. Atorvastatin 40 mg p.o. daily. 3. Donepezil 10 mg daily. 4. Finasteride 5 mg daily. 5. Memantine. 6. Valsartan/hydrochlorothiazide one tablet daily. DISCHARGE INSTRUCTIONS: Continue activity as tolerated. Advised to follow up at the rehabilitation outpatient for speech and physical therapy for at least 3-4 weeks. He is advised continued followup with primary care physician there at the [facility] in 1-2 weeks. DIET: Continue the diet recommended by speech therapy. I spent 35 minutes of this patient on the day of discharge.
== END 2017-11-24 14:33 | disposition home or self-care (01) | DRG 64 ==
LOC: ERS 08:52 → 2SE 10:20
PROVIDERS: ADMIT Family Medicine; ATTEND Family Medicine
DX: I63.9 Cerebral infarction, unspecified (principal); G93.40 Encephalopathy, unspecified; G93.89 Other specified disorders of brain; E86.0 Dehydration; R11.2 Nausea with vomiting, unspecified; I10 Essential (primary) hypertension; Z85.72 Personal history of non-Hodgkin lymphomas; Z92.21 Personal history of antineoplastic chemotherapy; Z92.3 Personal history of irradiation; F17.210 Nicotine dependence, cigarettes, uncomplicated; Z88.0 Allergy status to penicillin; R19.7 Diarrhea, unspecified; R47.81 Slurred speech; R53.1 Weakness; E78.5 Hyperlipidemia, unspecified; D72.829 Elevated white blood cell count, unspecified
CPT/HCPCS: 36415; 70450; 70553; 71010; 71020; 80048; 80053; 80061; 81001; 82140; 82553; 83605; 84145; 84484; 85025; 93005; 93306; 93880; 94760; 96361; 96374; 96375; 96376; A4216; A9579; G8978-GP-CM; G8979-GP-CK; G8987-GO-CK; G8988-GO-CI; G9162-GN-CM; G9163-GN-CK; J0696; J1650; J1956; J2405; S0028